=== PATIENT | male | born 1975 | race Caucasian/White ===

== ENCOUNTER 2016-07-10 22:01 | Emergency (ER) | payer BC ==
[~2016-07-10] VITALS: Ht 180.3 cm; Wt 93.0 kg
[~2016-07-10 22:01] MED LIST: INSULIN
--- NOTE | 2016-07-10 22:30 | NUR ---
TO ROOM 2B FOR ER EVAL
[2016-07-10] MEDS ORDERED: MISCELLANEOUS MED XX ONE (22:45)
[2016-07-10] MEDS ORDERED: DEXTROSE IV ONE (22:46)
--- NOTE | 2016-07-10 23:00 | NUR ---
PT RESTING QUIETLY D10 CONTINUES INFUSING ON PUMP.PT CHECKED BS AND ITS NOW 99.FRIEND AT BEDSIDE.PT ALSO DRINKING REG COLA
--- NOTE | 2016-07-10 23:50 | NUR ---
BS NOW 155 PER PTS MACHINE.HE WANTS TO DO HIS OWN
--- NOTE | 2016-07-11 02:36 | NUR ---
MSE COMPLETED, PT HAD IV D/C'D INTACT, PT THEN GIVEN ACI, PT GOT DRESSED AND AMBULATED W/O DIFF/TOOK ALL BELONGINGS.
[2016-07-11 02:37] VITALS: BP 138/88
== END 2016-07-11 02:37 | disposition home or self-care (01) ==
LOC: ER 22:02
DX: T38.3X1A Poisoning by insulin and oral hypoglycemic [antidiabetic] drugs, accidental (unintentional), initial encounter (principal); E11.9 Type 2 diabetes mellitus without complications; Z79.4 Long term (current) use of insulin; Y92.89 Other specified places as the place of occurrence of the external cause
CPT/HCPCS: 82962; 99284; A4663; J3490

== ENCOUNTER 2023-12-18 23:27 | Emergency (ER) | payer BC ==
[~2023-12-18] VITALS: Ht 180.3 cm; Wt 95.3 kg
--- NOTE | 2023-12-18 23:36 | NUR ---
ERMD at bedside. MSE in progress.
--- NOTE | 2023-12-18 23:44 | NUR ---
#22G established on right AC.
[2023-12-18] MEDS ORDERED: LIDOCAINE 1%-EPI 1:100,000 20 ML VIAL ONE (23:46)
[2023-12-18] MEDS ORDERED: SODIUM BICARBONATE 4.2 % (NEUT) 5 ML VIAL ONE (23:46)
[2023-12-18] MEDS ORDERED: ONDANSETRON 4 MG/2 ML VIAL ONE (23:47)
[2023-12-18] MEDS ORDERED: HYDROMORPHONE 1 MG/1 ML DISP.SYRIN ONE (23:47)
[2023-12-18] MEDS ORDERED: TDAP DIPH,PERTUSS,TET VAC/PF 0.5 ML DISP.SYRIN IM ONE (23:48)
[2023-12-18] MEDS ORDERED: PIPERACILLIN/TAZOBACTAM/D5W 50 ML IV ONE (23:48)
[2023-12-18] MEDS: LIDOCAINE 1%-EPI 1:100,000 20 ML VIAL IJ ONE (23:55)
[2023-12-18] MEDS: SODIUM BICARBONATE 4.2 % (NEUT) 5 ML VIAL TP ONE (23:55)
[2023-12-18] MEDS: HYDROMORPHONE 1 MG/1 ML DISP.SYRIN IV ONE (23:56)
[2023-12-18] MEDS: ONDANSETRON 4 MG/2 ML VIAL IV ONE (23:56)
[2023-12-18] MEDS: TDAP DIPH,PERTUSS,TET VAC/PF 0.5 ML DISP.SYRIN IM ONE (23:56)
--- NOTE | 2023-12-18 23:56 | NUR ---
Administered medication as prescribed. Assisted patient into comfortable position. safety and comfort measures in place. No S/S of distress noted.
--- NOTE | 2023-12-19 00:01 | NUR ---
Irrigated dog bite wound on the left hand and lower left extremity with normal saline and betadine. No S/S of distress noted.
[2023-12-19] MEDS: PIPERACILLIN SODIUM/TAZOBACTAM 3.375 G in IV DEXTROSE 5% 50 ML IV ONE (00:03)
[2023-12-19] MEDS ORDERED: AMOX-430 PO ×2 (00:24→07:52)
[2023-12-19] MEDS ORDERED: ONDA4TAB11 PO (00:24)
[2023-12-19] MEDS ORDERED: HYDR-4209 PO (00:24)
--- NOTE | 2023-12-19 00:35 | NUR ---
END time: Zosyn 3.375 Gram ended at this time
--- NOTE | 2023-12-19 00:50 | NUR ---
Bordered Gauze, and kerlix wrap applied to Dog wound on the lower left extremity and left hand. No S/S of distress noted.
--- NOTE | 2023-12-19 01:01 | NUR ---
Patient discharged to home in stable condition. Written and verbal after care instructions given. Patient verbalizes understanding of instructions. Stressed follow up or return to ER for worsening s/s. Patient left ER with steady gait.
[2023-12-19 01:18] VITALS: BP 138/86; TEMP 98.2; O2SAT 98
--- NOTE | 2023-12-19 01:18 | NUR ---
Patient advised to refrain from driving or operating heavy machinery due to medication side effects. Safety precautions discussed and patient instructed to seek alternative transportation arrangement. Patient agreed. Patient left ER with steady gait
[2023-12-19] MEDS ORDERED: HYDR-3972 PO (07:52)
[2023-12-19] MEDS ORDERED: ONDA4TAB5 PO (07:52)
== END 2023-12-19 01:19 | disposition home or self-care (01) ==
LOC: ER 23:31
DX: S61.512A Laceration without foreign body of left wrist, initial encounter (principal); E11.9 Type 2 diabetes mellitus without complications; Z79.891 Long term (current) use of opiate analgesic; Z98.890 Other specified postprocedural states; Z79.899 Other long term (current) drug therapy; W54.0XXA Bitten by dog, initial encounter; Y93.89 Activity, other specified; Y92.89 Other specified places as the place of occurrence of the external cause; Y99.8 Other external cause status
CPT/HCPCS: 12002; 90471; 90715; 96365; 96375; 99284; J1170; J2405; J2543; J3490; A4606; A4663

== ENCOUNTER 2024-03-07 22:15 | Emergency (ER) | payer BC ==
[~2024-03-07] VITALS: Ht 177.8 cm; Wt 90.7 kg
[~2024-03-07 22:15] MED LIST changes: +AMOX-430 PO; +HYDR-3972 PO; +HYDR-4209 PO; +ONDA4TAB11 PO; +ONDA4TAB5 PO
[2024-03-07] MEDS ORDERED: HYDROMORPHONE 2 MG/1 ML DISP.SYRIN ONE (22:58)
[2024-03-07] MEDS: HYDROMORPHONE 1 MG/1 ML DISP.SYRIN IM ONE (23:04)
[2024-03-08] MEDS ORDERED: HYDR-3980 PO (00:13)
[2024-03-08 00:30] VITALS: BP 139/95; TEMP 98.6; O2SAT 99
== END 2024-03-08 00:30 | disposition home or self-care (01) ==
LOC: ER 22:15
DX: I80.02 Phlebitis and thrombophlebitis of superficial vessels of left lower extremity (principal); E11.9 Type 2 diabetes mellitus without complications; Z79.4 Long term (current) use of insulin; Z79.899 Other long term (current) drug therapy
CPT/HCPCS: 99285; 93971; 73590; 96372; J1171; A4606; A4663

== ENCOUNTER 2024-06-23 20:00 | Emergency (ER) | payer BC ==
[~2024-06-23] VITALS: Ht 180.3 cm; Wt 92.5 kg
[~2024-06-23 20:00] MED LIST changes: +HYDR-3980 PO
[2024-06-23] MEDS ORDERED: MUPIROCIN 2% OINT 22 GM TUBE ONE (21:03)
[2024-06-23] MEDS ORDERED: MUPI22OI2 TP (21:05)
[2024-06-23] MEDS: MUPIROCIN 2% OINT 22 GM TUBE TP ONE (21:14)
[2024-06-23 21:25] VITALS: BP 140/74; TEMP 98.5; O2SAT 96
== END 2024-06-23 21:20 | disposition home or self-care (01) ==
LOC: ER 20:00
DX: L02.31 Cutaneous abscess of buttock (principal); L03.317 Cellulitis of buttock; L03.312 Cellulitis of back [any part except buttock and flank]; E11.9 Type 2 diabetes mellitus without complications; Z79.2 Long term (current) use of antibiotics; Z79.4 Long term (current) use of insulin
CPT/HCPCS: A4606; A4663

== ENCOUNTER 2024-06-25 11:45 | Emergency (ER) | payer BC ==
[~2024-06-25] VITALS: Ht 182.9 cm; Wt 95.3 kg
[~2024-06-25 11:45] MED LIST changes: +MUPI22OI2 TP
[2024-06-25] MEDS ORDERED: LIDOCAINE 1%-EPI 1:100,000 20 ML VIAL ONE (12:13)
[2024-06-25] MEDS: LIDOCAINE 1%-EPI 1:100,000 20 ML VIAL IJ ONE (12:15)
[2024-06-25 13:13] LABS: BASOPHILS % (AUTO) 0.4 % (0.0-2.0); EOSINOPHILS # (AUTO) 0.1 K/uL (0.0-0.7); EOSINOPHILS % (AUTO) 1.7 % (0.0-7.0); HEMATOCRIT 41.3 % (36.7-47.1); HEMOGLOBIN 13.9 g/dL (12.5-16.3); LYMPHOCYTES # (AUTO) 0.8 K/uL (0.8-4.8); LYMPHOCYTES % (AUTO) 10.6 % (20.5-51.5); MEAN CORPUSCULAR HEMOGLOBIN 33.4 uug (23.8-33.4); MEAN CORPUSCULAR HGB CONC 34 g/dL (32.5-36.3); MEAN CORPUSCULAR VOLUME 98.8 fL (73.0-96.2); MONOCYTES # (AUTO) 0.5 K/uL (0.1-1.30); MONOCYTES % (AUTO) 6.6 % (0.0-11.0); NEUTROPHILS # (AUTO) 6.2 K/uL (1.8-8.9); NEUTROPHILS % (AUTO) 80.7 % (38.5-71.5); PLATELET COUNT (AUTO) 311 K/uL (152-348); RED BLOOD CELL COUNT(AUTO) 4.18 MIL/uL (4.06-5.63); RED CELL DISTRIBUTION WIDTH 13.3 % (12.1-16.2); WHITE BLOOD COUNT (AUTO) 7.6 K/uL (3.6-10.2)
[2024-06-25] MEDS ORDERED: METRONIDAZOLE 500 MG/NS 100ML 100 ML IV ONE (13:13)
[2024-06-25 13:15] LABS: DIFFERENTIAL COMMENT 1
[2024-06-25] MEDS ORDERED: CEFTRIAXONE /D5W 50ML IVPB **ER PYXIS IV ONE (13:18)
[2024-06-25 13:21] LABS: CALCIUM 8.9 mg/dL (8.5-10.1); CREATININE 1.1 mg/dL (0.6-1.3); POTASSIUM 5.2 mmol/L (3.5-5.1)
[2024-06-25] MEDS: CEFTRIAXONE 2 G in IV DEXTROSE 5% 100 ML IV ONE (13:22)
[2024-06-25] MEDS ORDERED: NEOMY/BACITRA/POLYMYXIN B OINT UD PACKET TP ONE (13:33)
[2024-06-25] MEDS: NEOMY/BACITRA/POLYMYXIN B OINT UD PACKET TP ONE (13:44)
[2024-06-25] MEDS: IV NORMAL SALINE 500 ML BAG IV ONE (13:50)
[2024-06-25] MEDS: METRONIDAZOLE 500 MG/NS 100 ML PIGGYBACK IV ONE (13:59)
[2024-06-25 14:18] VITALS: BP 130/56; TEMP 97.8; O2SAT 99
[2024-06-25] MEDS ORDERED: METR500T PO (14:18)
[2024-06-25] MEDS ORDERED: HYDR-3980 PO (14:18)
== END 2024-06-25 14:28 | disposition home or self-care (01) ==
LOC: ER 11:45
DX: L02.31 Cutaneous abscess of buttock (principal); E11.9 Type 2 diabetes mellitus without complications; Z79.4 Long term (current) use of insulin; Z87.39 Personal history of other diseases of the musculoskeletal system and connective tissue; Z60.2 Problems related to living alone
CPT/HCPCS: 99285; 10061; 96365; 80048; 85025; 36415; 96368; J0696 ×2; J3490 ×2; J7040; A4606; A4663

== ENCOUNTER 2024-07-03 19:33 | Emergency (ER) | payer BC ==
[~2024-07-03] VITALS: Ht 182.9 cm; Wt 95.3 kg
[~2024-07-03 19:33] MED LIST changes: +METR500T PO
[2024-07-03 20:23] VITALS: BP 134/74; TEMP 97.9; O2SAT 97
== END 2024-07-03 20:19 | disposition home or self-care (01) ==
LOC: ER 19:42
DX: L02.31 Cutaneous abscess of buttock (principal); E11.9 Type 2 diabetes mellitus without complications; Z48.02 Encounter for removal of sutures; Z79.4 Long term (current) use of insulin; Z60.2 Problems related to living alone
CPT/HCPCS: A4606; A4663